=== PATIENT | female | born 1995 | race African-American/Black ===

== ENCOUNTER 2018-03-25 21:36 | Emergency (ER) | payer SELFPAY ==
[~2018-03-25] VITALS: Ht 165.1 cm; Wt 62.0 kg
[2018-03-26 00:52] VITALS: BP 110/76
== END 2018-03-26 01:00 | disposition home or self-care (01) ==
LOC: ER 21:36
DX: L03.114 Cellulitis of left upper limb (principal); Z98.890 Other specified postprocedural states
CPT/HCPCS: 99283